=== PATIENT | female | born 1945 | race Asian ===

== ENCOUNTER 2020-09-17 23:02 | Inpatient (IN) | payer MEDICARE, OTHER ==
[~2020-09-17] VITALS: Ht 167.6 cm; Wt 72.6 kg
[~2020-09-17 23:02] MED LIST: UNOBMED
--- NOTE | 2020-09-17 23:08 | Emergency Room Report ---
History of Present Illness General Chief Complaint: Abdominal Pain Source: Patient Present Illness HPI This is a 75-year-old female with a history of gastric cancer and previous admission here in 2016 for small bowel obstruction. She did not require surgery. She presents with chief complaint of abdominal pain. Onset was acute and occur about 3 PM. She has nausea but no vomiting. No diarrhea. Pain is mostly in the left lower quadrant area. No fever chills. Worse with palpation. Better with rest. No trauma. Allergies: Coded Allergies: No Known Allergies (Unverified , 09/13/15) COVID-19 Screening Contact w/high risk pt: No Experienced COVID-19 symptoms?: No COVID-19 Testing performed WIRE MACHINE OPERATOR: No Patient History Past Medical History: see triage record, old chart reviewed Past Surgical History: other Pertinent Family History: none Social History: Denies: smoking Last Menstrual Period: n/a Now: No Immunizations: other Reviewed Nursing Documentation: PMH: Agreed; PSxH: Agreed Nursing Documentation-PMH Past Medical History: No Stated History Hx Cardiac Problems: No Hx Cancer: Yes Hx Gastrointestinal Problems: Yes - abdominal pain Hx Neurological Problems: Yes Hx Vertigo: Yes Review of Systems Eye: Denies: eye pain, blurred vision ENT: Denies: ear pain, nose congestion, throat swelling Respiratory: Denies: cough, shortness of breath Cardiovascular: Denies: chest pain, palpitations Gastrointestinal: Reports: abdominal pain, nausea; Denies: diarrhea, vomiting Musculoskeletal: Denies: back pain, joint pain Skin: Denies: rash Neurological: Denies: headache, numbness Endocrine: Denies: increased thirst, increased urine Hematologic/Lymphatic: Denies: easy bruising All Other Systems: negative except mentioned in HPI Physical Exam Vital Signs Date Time Temp Pulse Resp B/P (MAP) Pulse Ox O2 Delivery O2 Flow Rate FiO2 09/17/20 23:02 98.1 70 16 180/88 (118) 100 Room Air Vitals with high blood pressure Sp02 EP Interpretation: reviewed, normal General Appearance: well appearing, no apparent distress, alert Head: normocephalic, atraumatic Eyes: bilateral eye PERRL, bilateral eye EOMI ENT: hearing grossly normal, normal pharynx Neck: full range of motion, supple, no meningismus Respiratory: chest non-tender, lungs clear, normal breath sounds Cardiovascular #1: regular rate, rhythm, no murmur Gastrointestinal: normal bowel sounds, no mass, no organomegaly, no bruit, non- distended, tenderness - Left lower quadrant Musculoskeletal: back normal, normal range of motion, gait/station normal Psychiatric: mood/affect normal Medical Decision Making Diagnostic Impression: Primary Impression: Small bowel obstruction Additional Impression: UTI (urinary tract infection) Qualified Codes: N30.00 - Acute cystitis without hematuria ER Course This patient presents with acute onset abdominal pain. She has small bowel obstruction. This is secondary to prior distal gastrectomy surgery. Patient also has urinary tract infection. NG tube placed. Patient will be admitted to the hospital for surgical evaluation. I discussed case with Dr. Rush for admission. CT/MRI/US Diagnostic Results CT/MRI/US Diagnostic Results : Imaging Test Ordered: CT abdomen and pelvis Impression Read by radiologist. Postsurgical changes from distal gastrectomy. High-grade distal small bowel obstruction. No perforation or abscess. Last Vital Signs Date Time Temp Pulse Resp B/P (MAP) Pulse Ox O2 Delivery O2 Flow Rate FiO2 09/17/20 23:02 98.1 70 16 180/88 (118) 100 Room Air Status: improved Disposition: ADMITTED INPATIENT Condition: Serious Chang Mancuso MD Sep 17, 2020 23:08
[2020-09-17] MEDS ORDERED: Morphine Sulfate 4mg/ml Inj (IV USE ONLY) IVP ONE (23:15)
--- NOTE | 2020-09-17 23:15 | NUR ---
ED Nurse Note: Patient arrived to ambulatory triage with c/o of nausea and abdominal pain hx of small bowl obstruction
[2020-09-17 23:18] LABS: BASOPHILS % (AUTO) 0.5 % (0.0-2.0); EOSINOPHILS % (AUTO) 0.4 % (0.0-3.0); HEMATOCRIT 42.1 % (37.0-47.0); HEMOGLOBIN 13.1 G/DL (12.0-16.0); LYMPHOCYTES % (AUTO) 12.5 % (20.0-45.0); MEAN CORPUSCULAR VOLUME 96 FL (80-99); MONOCYTES % (AUTO) 4.5 % (1.0-10.0); NEUTROPHILS % (AUTO) 82.1 % (45.0-75.0); PLATELET COUNT 221 K/UL (150-450); RED BLOOD COUNT 4.41 M/UL (4.20-5.40); RED CELL DISTRIBUTION WIDTH 13.3 % (11.6-14.8); WHITE BLOOD COUNT 10.2 K/UL (4.8-10.8)
[2020-09-17 23:29] VITALS: BP 155/67
--- NOTE | 2020-09-17 23:30 | NUR ---
ED Nurse Note: blood specimens sent to lab
[2020-09-17 23:33] LABS: ANION GAP 10 mmol/L (5-15); BLOOD UREA NITROGEN 22 mg/dL (7-18); CALCIUM 8.9 MG/DL (8.5-10.1); CARBON DIOXIDE 26 MMOL/L (21-32); CHLORIDE 98 MMOL/L (98-107); CREATININE 0.6 MG/DL (0.55-1.30); POTASSIUM 4.2 MMOL/L (3.5-5.1); SODIUM 134 MMOL/L (136-145)
[2020-09-17 23:38] LABS: ALANINE AMINOTRANSFERASE 23 U/L (12-78); ALBUMIN 4.3 G/DL (3.4-5.0); ALBUMIN/GLOBULIN RATIO 0.9 (1.0-2.7); ALKALINE PHOSPHATASE 86 U/L (46-116); ASPARTATE AMINO TRANSFERASE 32 U/L (15-37); BILIRUBIN,TOTAL 0.7 MG/DL (0.2-1.0)
[2020-09-18 01:20] LABS: APPEARANCE,URINE CLEAR; BILIRUBIN, URINE NEGATIVE (NEGATIVE); COLOR,URINE PALE YELLOW; GLUCOSE, URINE (UA) NEGATIVE (NEGATIVE); KETONES,URINE NEGATIVE (NEGATIVE); LEUKOCYTE ESTERASE ,URINE 2+ (NEGATIVE); NITRITE,URINE NEGATIVE (NEGATIVE); PH,URINE 7 (4.5-8.0); PROTEIN,URINE NEGATIVE (NEGATIVE); UROBILINOGEN,URINE NORMAL MG/DL (0.0-1.0)
--- NOTE | 2020-09-18 01:30 | NUR ---
urine specimen sent to lab
[2020-09-18] MEDS ORDERED: cefTRIAXone 1 GM in NS 55 ML IVPB ONE (01:45)
[2020-09-18] MEDS ORDERED: Ketorolac 30mg Inj IV ONE (01:45)
--- NOTE | 2020-09-18 01:58 | Diagnostic Imaging Report ---
EXAM: CT Abdomen and Pelvis With Intravenous Contrast CLINICAL HISTORY: ABD PAIN TECHNIQUE: Axial computed tomography images of the abdomen and pelvis with intravenous contrast. CTDI is 4.7 mGy and DLP is 229.4 mGy-cm. One or more of the following dose reduction techniques were used: automated exposure control, adjustment of the mA and/or kV according to patient size, use of iterative reconstruction technique. COMPARISON: Abdomen and pelvis CT of 09/13/2015 FINDINGS: Lung bases: Unremarkable. No mass. No consolidation. ABDOMEN: Liver: Unremarkable. No mass. Gallbladder and bile ducts: There is equivocal gallbladder wall thickening with mild distention of the gallbladder to a transverse diameter of 2.7 cm. No calcified stones. No ductal dilation. Pancreas: Unremarkable. No mass. No ductal dilation. Spleen: Unremarkable. No splenomegaly. Adrenals: Unremarkable. No mass. Kidneys and ureters: Unremarkable. No solid mass. No hydronephrosis. Stomach and bowel: Distal gastrectomy and jejunal anastomosis surgical changes are redemonstrated with a Lanre of the proximal anastomosis shown with contrast opacification of the stomach and proximal jejunum. There is however dilated small bowel loops proximally with gradual dilution of enteric contrast and distal small bowel loops are completely collapsed, consistent with a high-grade distal small bowel obstruction. The transition point is not well seen but is suspected to be in the mid abdomen slightly left of the umbilicus on image 46 of axial series 3. PELVIS: Appendix: No findings to suggest acute appendicitis. Bladder: Unremarkable. No mass. Reproductive: The uterus and ovaries are absent. ABDOMEN and PELVIS: Intraperitoneal space: Mild mesenteric edema is present and a trace amount of pelvic and intraperitoneal free fluid is present. No organized fluid collection. No free air. Bones/joints: No acute fracture. No dislocation. Soft tissues: Unremarkable. Vasculature: Unremarkable. No abdominal aortic aneurysm. Lymph nodes: Unremarkable. No enlarged lymph nodes. IMPRESSION: Postsurgical changes from distal gastrectomy with findings of high- grade distal small bowel obstruction. No evidence of bowel perforation or abscess formation.
[2020-09-18] MEDS ORDERED: Morphine Sulfate 4mg/ml Inj (IV USE ONLY) IVP PRN ×2 (02:30→11:15)
--- NOTE | 2020-09-18 03:10 | NUR ---
ED Nurse Note: NG tube placed right nare 16 FR
[2020-09-18 04:31] VITALS: BP 146/66
[2020-09-18] MEDS ORDERED: Morphine Sulfate 4mg/ml Inj (IV USE ONLY) IVP ONE (06:00)
[2020-09-18 06:32] VITALS: BP 130/56
[2020-09-18 09:16] VITALS: BP 154/74
--- NOTE | 2020-09-18 09:17 | NUR ---
NURSE NOTES: Patient admitted to the floor from ER, received telephone report from INGRID Caal from ER; patient came via gurney; patient alert x4; on room air, no sing of distress and shortness of breath; no sing of chest pain; IV LAC flushes well; NPO and NGT 16 Frn at 57cc in place at Right-Nare; belongings signed and cross counted; will call the admitting doctor to get admission order; call light within reach; will keep monitoring.
[2020-09-18] MEDS: Pantoprazole Inj IVP SCH (10:34)
[2020-09-18] MEDS: Heparin 5000 units/ml inj SUBQ SCH ×2 (10:36→20:59)
--- NOTE | 2020-09-18 11:44 | History and Physical Report ---
DATE OF ADMISSION: 09/18/2020 CHIEF COMPLAINT/REASON FOR HOSPITALIZATION: The patient is a 75-year-old lady who has had prior surgery for gastric cancer admitted for small bowel obstruction, abdominal pain, nausea but no vomiting. History was taken from chart review and talking to her daughter, Dana [phone]. The patient had no fever or chills, presents with abdominal pain. ALLERGIES: None known. MEDICATIONS: No regular medications that I can determine. HABITS: She is a nondrinker and nonsmoker. No use of illicit drugs. PAST SURGICAL HISTORY: Gastric cancer, unknown recurrence. SYSTEM REVIEW: Negative except for the recurrent problem as noted. PHYSICAL EXAMINATION: GENERAL: The patient is well-developed lady, looks her stated age, in no acute distress. There is a nasogastric tube and an IV. VITAL SIGNS: Normal, recorded on the computer. HEAD, EYES, EARS, NOSE, AND THROAT: Sclerae are nonicteric. Ocular motions intact in all directions. Oral mucosa is moist. NECK: No adenopathy or thyroid enlargement. LUNGS: Clear. HEART: Regular rhythm. No murmur, gallop, or rub. ABDOMEN: Nondistended. Liver and spleen not palpable. No focal tenderness at this time. I do not hear any bowel tones. EXTREMITIES: No edema, cyanosis, or clubbing. DIAGNOSTIC DATA: CT scan showed postsurgical changes in the distal gastrectomy with findings of high-grade distal small bowel obstruction. No evidence of bowel perforation or abscess formation. IMPRESSION: 1. Small bowel obstruction. 2. Status post resection of gastric cancer. 3. Otherwise negative past history. PLAN: 1. The patient is NPO. 2. Nasogastric suction. 3. Followup KUB. 4. Surgical consultation. Alfonso Rush M.D. DR: Johnny JOB#: [id number] CC:
[2020-09-18 12:00] VITALS: BP 122/56
[2020-09-18] MEDS ORDERED: Metoclopramide 10mg/2ml Inj IVP PRN (12:30)
--- NOTE | 2020-09-18 13:44 | Consultation ---
DATE OF CONSULTATION: 09/18/2020 CONSULTING PHYSICIAN: Katharine Candelario MD REQUESTING PHYSICIAN: ER physician REASON FOR CONSULTATION: Abdominal pain. HISTORY OF PRESENT ILLNESS: This is a 75-year-old Telugu female who presented to emergency room complaining of abdominal pain since yesterday afternoon. The pain is mainly located at the lower abdomen, mainly on the left lower quadrant. The patient cannot explain if this is colicky or steady. Apparently, there is no vomiting. She claimed that she had normal bowel movement early yesterday morning. PAST MEDICAL HISTORY: She denies asthma, diabetes, hypertension, cardiac or renal diseases. She has a history of cancer of the stomach. PAST SURGICAL HISTORY: Include: 1. Laparoscopic resection of the stomach for cancer of the stomach, apparently at [facility], that was 5 years ago. 2. Hysterectomy 7 years ago. 3. Apparently, she has had the perforated diverticulitis about 8 months ago. The daughter was not very clear but it appears that it has been laparoscopic irrigation with drain placement, this was performed at the [facility]. MEDICATIONS: None. SOCIAL HISTORY: The patient is a 75-year-old Telugu female, with four children. Denies smoking and drinking. REVIEW OF SYSTEMS: Noncontributory. PHYSICAL EXAMINATION: GENERAL: The patient appeared to be a well-developed and well-nourished 75-year-old Telugu female, lying on the bed, complaining of lower abdominal pain. HEENT: Head is normocephalic and atraumatic. Eyes, pupils are equal, round, and reactive to light. Mouth is clear. NECK: There is no palpable thyromegaly or adenopathy. CHEST: Clear to auscultation and percussion. HEART: There is no gallop or murmur. S1 and S2 are within normal limits. ABDOMEN: Mildly distended with tenderness at the left lower quadrant. Bowel sounds present. She has a scar of the transverse suprapubic incision and she has scar of the laparoscopy. GENITAL: Deferred. EXTREMITIES: Within normal limits. LABORATORY DATA: CBC has shown a WBC of 10,200 with left shift. Chemistry is within normal limits. CAT scan of the abdomen has been interpreted as small bowel obstruction and shows postsurgical changes for gastrectomy. ASSESSMENT: 1. Rule out small bowel obstruction. 2. Rule out diverticulitis. PLAN: At this time, the patient requires conservative treatment. Besides we need GI consultation. Katharine Candelario M.D. DR: Deepthi JOB#: [id number] CC: MANISHA
[2020-09-18] MEDS: Piperacillin/Tazobactam 3.375 GM in NS 110 ML IVPB SCH ×2 (14:02→20:59)
[2020-09-18 16:00] VITALS: BP_SYST 104; BP_SYST 143; BP_DIAS 57; BP_DIAS 83
--- NOTE | 2020-09-18 19:28 | NUR ---
NURSE HAND-OFF: Important Events on Shift:Admitted to the floor; EKG done, sinus Henry; IV fluid and antibiotics Patient Status: Diet: Pending Orders: Pending Results/Labs: Pending MD notification: Latest Vital Signs: Temperature 97.6 , Pulse 67 , B/P 143 /83 , Respiratory Rate 20 , O2 SAT 99 , Room Air, O2 Flow Rate . Vital Sign Comment: Latest Flores Fall Score: 20 Fall Risk: Low Risk Safety Measures: Call light , Bed Alarm , Side Rails Side Rails x2, Bed position Low and Locked. Fall Precautions: Patient Fall Education Report given to .
[2020-09-18 20:00] VITALS: BP 149/75
--- NOTE | 2020-09-18 20:18 | NUR ---
NURSE NOTES: Patient in bed, awake, alert and verbally responsive. Able to make needs known. Italian Speaking. Kept clean and comfortable. Bed in low and locked position. Provided safe environment. Noted with left arm IV, iv fluid is infusing as ordered. Skin is warm and dry to touch. Abdomen is soft. Noted with right nare ng tube, in low intermittent suction. on tip of nose 50-53 cm. Green emesis noted from suction. No complaint of pain or discomfort. call light is at bedside. Will continue plan of care.
[2020-09-19] VITALS: BP 138/71
[2020-09-19 04:00] VITALS: BP 146/69
[2020-09-19] MEDS: Piperacillin/Tazobactam 3.375 GM in NS 110 ML IVPB SCH ×3 (05:45→21:05)
--- NOTE | 2020-09-19 07:34 | NUR ---
NURSE HAND-OFF: Important Events on Shift:NPO Patient Status: Diet: Pending Orders: Pending Results/Labs: Pending MD notification: Latest Vital Signs: Temperature 98.6 , Pulse 60 , B/P 146 /69 , Respiratory Rate 20 , O2 SAT 96 , Room Air, O2 Flow Rate . Vital Sign Comment: Latest Flores Fall Score: 20 Fall Risk: Low Risk Safety Measures: Call light Within Reach, Bed Alarm Zone 1, Side Rails Side Rails x2, Bed position Low and Locked. Fall Precautions: Patient Fall Education Report given to .
--- NOTE | 2020-09-19 07:35 | NUR ---
NURSE NOTES: Received hand-off report from Tate Sawyer RN. Patient in stable condition, abdomen soft and complains of aching at a level 6-7, no signs of bleeding, v/s WNL, fall precautions education given. Patient alert and oriented x4, alert to person, place, time and situation. Patient made aware of abdominal x-ray. Will administer pain medication soon.
[2020-09-19 08:00] VITALS: BP 151/72
[2020-09-19] MEDS: Pantoprazole Inj IVP SCH (08:00)
--- NOTE | 2020-09-19 08:00 | NUR ---
NURSE NOTES: Patient complaining of aching pains 6-7 level in the left lower quadrant of abdomen and pain medication gathered and given. NG tube hooked up to low-intermittent suctioning, functioning well, output at 600mL level and will monitor for increased output, according to store sales leader when it was checked the level was at 550mL when last checked. NG tube in proper position at 57number.
[2020-09-19] MEDS: Heparin 5000 units/ml inj SUBQ SCH ×2 (08:09→21:10)
--- NOTE | 2020-09-19 08:19 | NUR ---
NURSE NOTES: Patient denies nausea and vomiting at this time.
--- NOTE | 2020-09-19 08:23 | NUR ---
NURSE NOTES: Abdominal x-ray performed successfully.
[2020-09-19 09:16] LABS: BASOPHILS % (AUTO) 0.9 % (0.0-2.0); EOSINOPHILS % (AUTO) 1.8 % (0.0-3.0); HEMATOCRIT 37.4 % (37.0-47.0); HEMOGLOBIN 11.9 G/DL (12.0-16.0); LYMPHOCYTES % (AUTO) 34.6 % (20.0-45.0); MEAN CORPUSCULAR VOLUME 93 FL (80-99); MONOCYTES % (AUTO) 6.5 % (1.0-10.0); NEUTROPHILS % (AUTO) 56.2 % (45.0-75.0); PLATELET COUNT 176 K/UL (150-450); RED BLOOD COUNT 4.03 M/UL (4.20-5.40); RED CELL DISTRIBUTION WIDTH 13.8 % (11.6-14.8); WHITE BLOOD COUNT 4.9 K/UL (4.8-10.8)
[2020-09-19 09:52] LABS: ALANINE AMINOTRANSFERASE 22 U/L (12-78); ALBUMIN 3.4 G/DL (3.4-5.0); ALBUMIN/GLOBULIN RATIO 0.8 (1.0-2.7); ALKALINE PHOSPHATASE 62 U/L (46-116); ANION GAP 7 mmol/L (5-15); ASPARTATE AMINO TRANSFERASE 23 U/L (15-37); BILIRUBIN,TOTAL 1.1 MG/DL (0.2-1.0); BLOOD UREA NITROGEN 10 mg/dL (7-18); CALCIUM 7.5 MG/DL (8.5-10.1); CARBON DIOXIDE 26 MMOL/L (21-32); CHLORIDE 108 MMOL/L (98-107); CREATININE 0.6 MG/DL (0.55-1.30); POTASSIUM 3.8 MMOL/L (3.5-5.1); SODIUM 141 MMOL/L (136-145)
[2020-09-19 09:57] LABS: BILIRUBIN,DIRECT 0.3 MG/DL (0.0-0.3)
[2020-09-19 12:00] VITALS: BP 140/76
--- NOTE | 2020-09-19 12:50 | NUR ---
CASE MANAGEMENT:REVIEW 75 YR OLD FEMALE BIBA FROM HOME CC: ABDOMINAL PAIN AND VOMITING SI: SMALL BOWEL OBSTRUCTION. UTI 98.1 70 16 180/88 100% ON RA BUN+22 IS: IV ZOFRAN X2 IV MORPHINE X2 1L NS BOLUS X1 IV ROCEPHIN X1 IV TORADOL X1 500CC NS BOLUS X1 CT ABD/PELVIS NPO : TO MED/SURG UNIT DCP: FROM HOME
--- NOTE | 2020-09-19 13:20 | NUR ---
CHARGE NURSE NOTE: Pt refused to continue NG tube gastric suctioning. notified, he is on his way to see patient.
--- NOTE | 2020-09-19 13:56 | NUR ---
NURSE NOTES: Notified Dr. Evans because patient wishes to see him, awaiting response.
--- NOTE | 2020-09-19 14:20 | NUR ---
NURSE NOTES: Removed NGT per Dr. Candelario direct verbal order.
--- NOTE | 2020-09-19 14:20 | Diagnostic Imaging Report ---
Indication: Abdominal pain Technique: 2 views of the abdomen Comparison: Small bowel study dated 09/13/2015, as well as abdomen pelvis CT dated 09/18/2020 Findings: Dough Maker film demonstrates contrast within the colon, presumably from recent CT scan. A single loop of minimally dilated small bowel is seen in the left upper quadrant. Degree of distention is considerably less than that demonstrated on previous day's CT scan. There is a nasogastric tube in place, tip which projects at the level of the gastric fundus, proximal sidehole probably above the gastroesophageal junction. Surgical clips are seen in the cecal region likely indicating appendectomy Impression: Single dilated left upper quadrant small bowel loop, degree of distention overall considerably improved since previous day's CT scan. Transit of entirety of ingested contrast into the colon indicates that the degree of small bowel obstruction is only partial.
--- NOTE | 2020-09-19 14:32 | General Surgery Progress Note ---
General Surgery-Progress Note Subjective Symptoms: improved, BM Additional Comments pain resolved Objective Last 24 Hour Vital Signs Date Time Temp Pulse Resp B/P (MAP) Pulse Ox O2 Delivery O2 Flow Rate FiO2 09/19/20 12:00 97.3 65 19 140/76 (97) 98 09/19/20 08:30 98.6 09/19/20 08:00 97.2 62 18 151/72 (98) 96 09/19/20 04:00 98.6 60 20 146/69 (94) 96 09/19/20 00:00 98.2 65 20 138/71 (93) 96 09/18/20 20:15 Room Air 09/18/20 20:00 98.0 63 20 149/75 (99) 96 09/18/20 16:00 97.6 67 20 143/83 (103) 99 I&O Intake and Output 09/18/20 09/19/20 19:00 07:00 Intake Total 910.0 ml Output Total 400 ml Balance 910.0 ml -400 ml IV Total 910.0 ml Output Gastric Drainage Total 400 ml # Voids 3 # Bowel Movements 1 Respiratory: clear Abdomen: soft, flat, non-tender, present bowel sounds Extremities: no tenderness Laboratory Tests Test 09/19/20 08:35 White Blood Count 4.9 K/UL (4.8-10.8) # Red Blood Count 4.03 M/UL (4.20-5.40) L Hemoglobin 11.9 G/DL (12.0-16.0) L Hematocrit 37.4 % (37.0-47.0) Mean Corpuscular Volume 93 FL (80-99) Mean Corpuscular Hemoglobin 29.5 PG (27.0-31.0) Mean Corpuscular Hemoglobin Concent 31.8 G/DL (32.0-36.0) L Red Cell Distribution Width 13.8 % (11.6-14.8) Platelet Count 176 K/UL (150-450) Mean Platelet Volume 8.8 FL (6.5-10.1) Neutrophils (%) (Auto) 56.2 % (45.0-75.0) Lymphocytes (%) (Auto) 34.6 % (20.0-45.0) Monocytes (%) (Auto) 6.5 % (1.0-10.0) Eosinophils (%) (Auto) 1.8 % (0.0-3.0) Basophils (%) (Auto) 0.9 % (0.0-2.0) Sodium Level 141 MMOL/L (136-145) Potassium Level 3.8 MMOL/L (3.5-5.1) Chloride Level 108 MMOL/L (98-107) H Carbon Dioxide Level 26 MMOL/L (21-32) Anion Gap 7 mmol/L (5-15) Blood Urea Nitrogen 10 mg/dL (7-18) Creatinine 0.6 MG/DL (0.55-1.30) Estimat Glomerular Filtration Rate > 60 mL/min (>60) Glucose Level 101 MG/DL (74-106) Calcium Level 7.5 MG/DL (8.5-10.1) L Total Bilirubin 1.1 MG/DL (0.2-1.0) H Direct Bilirubin 0.3 MG/DL (0.0-0.3) Aspartate Amino Transf (AST/SGOT) 23 U/L (15-37) Alanine Aminotransferase (ALT/SGPT) 22 U/L (12-78) Alkaline Phosphatase 62 U/L (46-116) Total Protein 7.5 G/DL (6.4-8.2) Albumin 3.4 G/DL (3.4-5.0) Globulin 4.1 g/dL Albumin/Globulin Ratio 0.8 (1.0-2.7) L Assessment Additional Comments Abdominal pain Plan Additional Comments clear liquid diet Katharine Candelario MD Sep 19, 2020 14:32
--- NOTE | 2020-09-19 14:54 | Cardiology Report ---
APPROVED REPORT EKG Measurement Heart [id number] OH [id number] [id number] <Conclusion> Sinus bradycardia Otherwise normal ECG
[2020-09-19] MEDS: Docusate Sod/Senna tab ORAL SCH (15:36)
--- NOTE | 2020-09-19 15:37 | General Progress Note ---
Subjective Respiratory: Reports: no symptoms Endocrine: Reports: unexplained weight loss Hematologic/Lymphatic: Reports: no symptoms Allergies: Coded Allergies: No Known Allergies (Unverified , 09/13/15) Objective Last 24 Hour Vital Signs Date Time Temp Pulse Resp B/P (MAP) Pulse Ox O2 Delivery O2 Flow Rate FiO2 09/19/20 12:00 97.3 65 19 140/76 (97) 98 09/19/20 08:30 98.6 09/19/20 08:00 97.2 62 18 151/72 (98) 96 09/19/20 04:00 98.6 60 20 146/69 (94) 96 09/19/20 00:00 98.2 65 20 138/71 (93) 96 09/18/20 20:15 Room Air 09/18/20 20:00 98.0 63 20 149/75 (99) 96 09/18/20 16:00 97.6 67 20 143/83 (103) 99 Intake and Output 09/18/20 09/19/20 19:00 07:00 Intake Total 910.0 ml Output Total 400 ml Balance 910.0 ml -400 ml IV Total 910.0 ml Output Gastric Drainage Total 400 ml # Voids 3 # Bowel Movements 1 Laboratory Tests 09/19/20 08:35: White Blood Count 4.9#, Red Blood Count 4.03L, Hemoglobin 11.9L, Hematocrit 37.4, Mean Corpuscular Volume 93, Mean Corpuscular Hemoglobin 29.5, Mean Corpuscular Hemoglobin Concent 31.8L, Red Cell Distribution Width 13.8, Platelet Count 176, Mean Platelet Volume 8.8, Neutrophils (%) (Auto) 56.2, Lymphocytes (%) (Auto) 34.6, Monocytes (%) (Auto) 6.5, Eosinophils (%) (Auto) 1.8, Basophils (%) (Auto) 0.9, Sodium Level 141, Potassium Level 3.8, Chloride Level 108H, Carbon Dioxide Level 26, Anion Gap 7, Blood Urea Nitrogen 10, Creatinine 0.6, Estimat Glomerular Filtration Rate > 60, Glucose Level 101, Calcium Level 7.5L, Total Bilirubin 1.1H, Direct Bilirubin 0.3, Aspartate Amino Transf (AST/SGOT) 23, Alanine Aminotransferase (ALT/SGPT) 22, Alkaline Phosphatase 62, Total Protein 7.5, Albumin 3.4, Globulin 4.1, Albumin/Globulin Ratio 0.8L Height (Feet): 5 Height (Inches): 6.00 Weight (Pounds): 160 Extremities: non-tender Assessment/Plan Problem List: (1) History of gastric cancer ICD Codes: Z85.028 - Personal history of other malignant neoplasm of stomach SNOMED: [id number], [id number] Assessment/Plan: passing liquid bm, sbo improving+ Alfonso Rush MD Sep 19, 2020 15:36
[2020-09-19 16:00] VITALS: BP 131/68
--- NOTE | 2020-09-19 16:29 | Consultation ---
DATE OF CONSULTATION: 09/19/2020 CHIEF COMPLAINT: Abdominal pain. HISTORY OF PRESENT ILLNESS: This is a 75-year-old Irish female with past medical history of gastric cancer status post resection about a year ago presented to the hospital with complaint of abdominal pain. Since admission, the patient had a CT of the abdomen and pelvis which showed evidence of partial gastrectomy, questionable small bowel obstruction. PAST MEDICAL HISTORY: 1. Gastric cancer status post surgery. 2. Hypertension. 3. Diabetes. 4. Coronary artery disease. 5. Diverticulitis. 6. Asthma. ALLERGIES: No known drug allergies. PAST SURGICAL HISTORY: Partial gastrectomy, hysterectomy, history of diverticulitis. REVIEW OF SYSTEMS: A 10-point review of systems was performed and pertinent positives in HPI. PHYSICAL EXAMINATION: VITAL SIGNS: Temperature 97.3, pulse 65, respirations 19, blood pressure 140/76. HEENT: Normocephalic and atraumatic. Sclerae anicteric. NECK: Supple. No evidence of obvious lymphadenopathy. CARDIOVASCULAR: Regular rate and rhythm. Plus S1-S2. LUNGS: Clear to auscultation bilaterally. ABDOMEN: Positive bowel sounds. Soft and nontender. No rebound. No guarding No peritoneal sign. EXTREMITIES: No cyanosis, no clubbing, no edema. ASSESSMENT AND PLAN: This is a 75-year-old female with abdominal pain, CT evidence of small bowel obstruction, history of gastric cancer status post resection. At this time, the patient's symptoms are improving. CT contrast was seen in the colon so we doubt the patient has active bowel obstruction. The patient was seen by the surgeon. Diet has been started, liquid diet. We will advance as tolerated. The patient needs outpatient followup for colonoscopy. Faizan Evans M.D. DR: Roney JOB#: [id number] CC:
--- NOTE | 2020-09-19 16:53 | Diagnostic Imaging Report ---
Indication: Abdominal pain and distention, evidence of small bowel obstruction on recent CT scan Technique: Water-soluble contrast given via nasogastric tube. Serial overhead films obtained. No fluoroscopy utilized. Total image number is 5 Comparison: Plain radiograph of earlier the same day Findings: Liquor Bridge Operator image demonstrates a nasogastric tube. There is evidence of prior gastric bypass surgery. Contrast from earlier CT scan is seen within the colon. Single segment of mildly dilated small bowel is seen in the left side of the abdomen. After instillation of contrast, there is brisk transit of contrast through the small bowel. Proximal small bowel is minimally dilated, and there is a segment of ileum that is also mildly dilated. Mucosal pattern is unremarkable. Contrast is seen within the colon as early as 45 minutes. Impression: Essentially unremarkable exam. Mildly dilated proximal small bowel loops are noted. However, brisk transit of contrast through the small bowel into the colon indicates absence of any significant obstruction
--- NOTE | 2020-09-19 19:15 | NUR ---
NURSE HAND-OFF: Important Events on Shift: NGT removed without any distress noted, no aspiration noted Patient Status: full code, stable condition, alert and oriented x4 Diet: clear liquid diet Pending Orders: [] Pending Results/Labs:[] Pending MD notification:[] Latest Vital Signs: Temperature 97.3 , Pulse 80 , B/P 131 /68 , Respiratory Rate 18 , O2 SAT 96 , Room Air, O2 Flow Rate . Vital Sign Comment: [] Latest Flores Fall Score: 20 Fall Risk: Low Risk Safety Measures: Call light Within Reach, Bed Alarm Zone 1, Side Rails Side Rails x2, Bed position Low and Locked. Fall Precautions: Yellow Socks Yellow Gown Patient Fall Education Report given to INGRID Silveira.
--- NOTE | 2020-09-19 19:15 | NUR ---
NURSE NOTES: Received report from INGRID De La Garza. Pt is A&Ox4 laying in bed. Call light within reach, side rails up x2, bed locked and in lowest position. Pt is ambulatory and has BRP. IVF infusing well into left AC. Will continue to monitor.
[2020-09-19 20:00] VITALS: BP 109/58
[2020-09-20] VITALS: BP 128/54
[2020-09-20 04:00] VITALS: BP 114/64
[2020-09-20] MEDS: Piperacillin/Tazobactam 3.375 GM in NS 110 ML IVPB SCH (05:13)
--- NOTE | 2020-09-20 07:02 | NUR ---
NURSE HAND-OFF: Important Events on Shift: BM x2, formed with a little liquid Patient Status: calm Diet: clear liquid Pending Orders: Pending Results/Labs: Pending MD notification: Latest Vital Signs: Temperature 97.4 , Pulse 61 , B/P 114 /64 , Respiratory Rate 16 , O2 SAT 98 , Room Air, O2 Flow Rate . Vital Sign Comment: VSS Latest Flores Fall Score: 20 Fall Risk: Low Risk Safety Measures: Call light Within Reach, Bed Alarm Zone 1, Side Rails Side Rails x2, Bed position Low and Locked. Fall Precautions: Yellow Socks Yellow Gown Patient Fall Education Report given to INGRID Garcia.
--- NOTE | 2020-09-20 07:25 | NUR ---
NURSE NOTES: Received patient in bed,awake, alert and oriented x4. setswana speaking. Patient denies pain or discomfort but informed RN that she had diarrhea x2 this morning. No blood per patient. RN informed patient to call nurse before she flushes the toilet next time she goes and also explained to the patient that patient is taking stool softner. Bowel sound presents,denies nausea or vomiting. Abdomen is soft to touch,patient tolerates well to clear liquid diet. Call light within reach. Bed is in lowest position and locked. IVF and antibiotic is running, no s/s of infiltration on IV site. Will continue plan of care.
--- NOTE | 2020-09-20 07:31 | General Progress Note ---
Subjective ROS Limited/Unobtainable: Yes Allergies: Coded Allergies: No Known Allergies (Unverified , 09/13/15) Objective Last 24 Hour Vital Signs Date Time Temp Pulse Resp B/P (MAP) Pulse Ox O2 Delivery O2 Flow Rate FiO2 09/20/20 04:00 97.4 61 16 114/64 (81) 98 09/20/20 00:00 97.5 60 16 128/54 (78) 96 09/19/20 21:00 Room Air 09/19/20 20:00 97.0 60 18 109/58 (75) 97 09/19/20 16:00 97.3 80 18 131/68 (89) 96 09/19/20 12:00 97.3 65 19 140/76 (97) 98 09/19/20 09:00 Room Air 09/19/20 08:30 98.6 09/19/20 08:00 97.2 62 18 151/72 (98) 96 Intake and Output 09/19/20 09/20/20 19:00 07:00 Intake Total 240 ml 100 ml Balance 240 ml 100 ml Intake Oral 240 ml 100 ml # Voids 3 5 # Bowel Movements 1 3 Laboratory Tests 09/19/20 08:35: White Blood Count 4.9#, Red Blood Count 4.03L, Hemoglobin 11.9L, Hematocrit 37.4, Mean Corpuscular Volume 93, Mean Corpuscular Hemoglobin 29.5, Mean Corpuscular Hemoglobin Concent 31.8L, Red Cell Distribution Width 13.8, Platelet Count 176, Mean Platelet Volume 8.8, Neutrophils (%) (Auto) 56.2, Lymphocytes (%) (Auto) 34.6, Monocytes (%) (Auto) 6.5, Eosinophils (%) (Auto) 1.8, Basophils (%) (Auto) 0.9, Sodium Level 141, Potassium Level 3.8, Chloride Level 108H, Carbon Dioxide Level 26, Anion Gap 7, Blood Urea Nitrogen 10, Creatinine 0.6, Estimat Glomerular Filtration Rate > 60, Glucose Level 101, Calcium Level 7.5L, Total Bilirubin 1.1H, Direct Bilirubin 0.3, Aspartate Amino Transf (AST/SGOT) 23, Alanine Aminotransferase (ALT/SGPT) 22, Alkaline Phosphatase 62, Total Protein 7.5, Albumin 3.4, Globulin 4.1, Albumin/Globulin Ratio 0.8L Height (Feet): 5 Height (Inches): 6.00 Weight (Pounds): 160 General Appearance: no apparent distress EENT: PERRL/EOMI Neck: supple Cardiovascular: normal rate Respiratory/Chest: decreased breath sounds Abdomen: hypoactive bowel sounds Extremities: non-tender Assessment/Plan Problem List: (1) History of gastric cancer ICD Codes: Z85.028 - Personal history of other malignant neoplasm of stomach SNOMED: 042971236, 600894932 (2) UTI (urinary tract infection) ICD Codes: N39.0 - Urinary tract infection, site not specified SNOMED: 04236665 Qualifiers: Qualified Codes: N30.00 - Acute cystitis without hematuria (3) Small bowel obstruction ICD Codes: K56.69 - Other intestinal obstruction SNOMED: 678622422 Assessment/Plan: neg SBFT on diet fu surg recs needs close out patient fu Faizan Evans MD Sep 20, 2020 07:31
[2020-09-20 08:00] VITALS: BP 130/69
[2020-09-20] MEDS: Pantoprazole Inj IVP SCH (08:45)
[2020-09-20] MEDS: Heparin 5000 units/ml inj SUBQ SCH (08:46)
[2020-09-20] MEDS: Docusate Sod/Senna tab ORAL SCH (08:47)
--- NOTE | 2020-09-20 09:00 | NUR ---
NURSE NOTES: Patient refused to take stool sotfner due to loose BM. RN re educated on meds,patient fully understood. Will inform Dr. Candelario.
[2020-09-20] MEDS ORDERED: AMPICILLIN250 MG ORAL (11:17)
--- NOTE | 2020-09-20 11:44 | Discharge Summary ---
DATE OF ADMISSION: 09/18/2020 DATE OF DISCHARGE: 09/20/2020 PERTINENT HISTORY: The patient presents with abdominal pain and CT evidence of small bowel obstruction. PERTINENT PHYSICAL FINDINGS: Abdomen is minimally distended and very mild tenderness, no rebound. COURSE IN THE HOSPITAL: The patient was hydrated and placed NPO, NG suction. She saw Dr. Candelario in surgical consultation. She had improvement in her imaging and started having loose liquid stools and tolerated clear liquid diet and was discharged home in improved condition. Note, she had some pyuria and urinary culture showed mixed gram-positive organisms. FINAL DIAGNOSES: 1. Small bowel obstruction. 2. History of surgery for gastric cancer without recurrence. 3. UTI. DISCHARGE DISPOSITION: 1. Home on clear liquid diet, advance to solids. 2. Ampicillin 250 mg q.i.d. for 7 days. FOLLOWUP: Followup with her primary care physician. Alfonso Rush M.D. DR: Johnny JOB#: [id number] CC:
[2020-09-20 12:00] VITALS: BP 128/71
--- NOTE | 2020-09-20 12:15 | NUR ---
NURSE NOTES: Patient was seen by Dr. Rush earlier and he put discharge order after seeing the patient. Patient fully understood about her diagnosis and condition. discharge instruction given to the patient including how to advance her diet, how to take new prescribed antibiotic and possible side effect, when to seek medical attention and UTI. RN instructed patient to follow up with her primary doctor as needed. IV and ID were removed, no s/s of infection or bleeding on IV removal site. All belongings were check and accounted for. skin is intact, no swelling. Patient denied pain ,nausea, vomiting prior to discharge. able to tolerate with her regular food without discomfort. Prescription given to the patient,she will fill the med from her choice of pharmacy. Patient was picked up by her .
--- NOTE | 2020-09-20 15:33 | General Surgery Progress Note ---
General Surgery-Progress Note Subjective Symptoms: improved, BM Objective Last 24 Hour Vital Signs Date Time Temp Pulse Resp B/P (MAP) Pulse Ox O2 Delivery O2 Flow Rate FiO2 09/20/20 12:00 98.1 61 20 128/71 (90) 98 09/20/20 09:00 Room Air 09/20/20 08:00 98.1 60 20 130/69 (89) 98 09/20/20 04:00 97.4 61 16 114/64 (81) 98 09/20/20 00:00 97.5 60 16 128/54 (78) 96 09/19/20 21:00 Room Air 09/19/20 20:00 97.0 60 18 109/58 (75) 97 09/19/20 16:00 97.3 80 18 131/68 (89) 96 I&O Intake and Output 09/19/20 09/20/20 19:00 07:00 Intake Total 240 ml 200 ml Balance 240 ml 200 ml Intake Oral 240 ml 100 ml IV Total 100 ml # Voids 3 5 # Bowel Movements 1 3 Respiratory: clear Abdomen: soft, flat, non-tender, present bowel sounds Extremities: no tenderness Assessment Additional Comments partial SBO resolved Plan Additional Comments discharge to home Katharine Candelario MD Sep 20, 2020 15:33
== END 2020-09-20 12:15 | disposition home or self-care (01) | DRG 389 ==
LOC: EDBD 23:02 → EMR 23:15 → 4E 09-18 02:27 → EDBEDREQ 09-18 05:39 → 4E 09-18 05:58
DX: K56.609 Unspecified intestinal obstruction, unspecified as to partial versus complete obstruction (principal); N39.0 Urinary tract infection, site not specified; Z85.028 Personal history of other malignant neoplasm of stomach; E11.9 Type 2 diabetes mellitus without complications; I10 Essential (primary) hypertension; I25.10 Atherosclerotic heart disease of native coronary artery without angina pectoris; J45.909 Unspecified asthma, uncomplicated
CPT/HCPCS: 36415; 74019; 74177; 74250; 80053; 81003; 82248; 83690; 85025; 87086; 93005; 96361; 96365; 96375; 99285; C9399; J2405; J7030